=== PATIENT | male | born 1960 | race Caucasian/White ===

== ENCOUNTER 2020-10-18 18:00 | Emergency (ER) | payer OTHER ==
[2020-10-18] MEDS ORDERED: FLUORESCEIN SODIUM 10% 500 MG/5 ML VIAL IJ ONE (18:29)
[2020-10-18] MEDS ORDERED: TETRACAINE 0.5% OPHTH SOLN 2 ML BOTTLE ONE (18:30)
[2020-10-18] MEDS ORDERED: TETRACAINE 0.5% HCL 0.6ML DROPPER.BOTTLE OD ONE (18:30)
[2020-10-18] MEDS ORDERED: FLUORESCEIN NA 1 EA STRIP ONE (18:31)
[2020-10-18 18:36] VITALS: BP 111/74; PULSE 110; TEMP 98.9; BMI 25.0
== END 2020-10-18 18:55 | disposition home or self-care (01) ==
LOC: FER 18:00
DX: S05.51XA Penetrating wound with foreign body of right eyeball, initial encounter (principal)
CPT/HCPCS: 99283-25